=== PATIENT | female | born 1990 | race African-American/Black ===

== ENCOUNTER 2017-09-30 21:38 | Emergency (ER) | payer OTHER ==
[~2017-09-30 21:38] MED LIST: AFRIN30 ML NASB; ALA-CORT30 GM TOP; AMOXICILLIN875 M1 PO; BENTYL20 M1 PO; GOLYTELY 40004000 ML PO; IBUPROFEN600 M1 PO; IBUPROFEN800 M1 PO; MEDROL4 M2 PO; PEPCID20 MG PO; PREDNISOLO15 MG/5 M4 PO; PROAIR HFA8.5 GM INH; TAMIFLU75 M1 PO; TRAMADOL HCL50 M1 PO; TRAMADOL50 MG PO; ZOFRAN ODT4 M1 SL; ZOFRAN4 M2 PO
[2017-09-30 21:46] VITALS: BP 131/70
--- NOTE | 2017-09-30 23:28 | ED GI/GU/ABDOMINAL COMPLAINT ---
History of Present Illness General Chief Complaint: General Adult Stated Complaint: PT THINKS SHE HAS A UTI Source: patient Exam Limitations: no limitations Vital Signs & Intake/Output Vital Signs & Intake/Output Vital Signs Date Time Temp Pulse Resp B/P B/P Pulse O2 O2 Flow FiO2 Mean Ox Delivery Rate 09/30 2146 97.8 70 20 131/70 98 ED Intake and Output 10/01 0000 09/30 1200 Intake Total 0 Output Total Balance 0 Intake, Oral 0 Allergies Coded Allergies: morphine (Mild, HIVES 04/27/17) shrimp (ANAPHYLAXIS 05/14/17) Reconcile Medications Hydrocortisone (Ala-Tam) 2.5 % CREAM..G. 1 SOCRATES TOP TID PRN ITCHING 5 DAYS MAX Ibuprofen 800 MG TABLET 1 TAB PO TID PAIN/FEVER Oseltamivir Phosphate (Tamiflu) 75 MG CAPSULE 1 CAP PO BID FLU Prednisolone 15 MG/5 ML SOLUTION 10 ML PO QDAY allergic reaction Triage Note: PER PT PAIN IN VAGINA STARTED AFTER BEING TREATED WITH TAMIFLU 2 WEEKS AGO + DISCHARGE WHITE IN COLOR \LMP 1 WEEK AGO Triage Nurses Notes Reviewed? yes ? n Is pt currently ? No Onset: Abrupt Duration: day(s): Timing: recent history Location: vaginal Radiation: no radiation Activities at Onset: none No Modifying Factors: none HPI: 27-year-old female comes into the emergency room for further evaluation of vaginal discharge and itching is been going on for the past week. She reports some burning when she peas. She denies any back pain fever vomiting. She is sexually active with women. One partner in the last 6 months. Denies any history of sexually transmitted disease. She reports that her partner was recently treated for a bacterial infection but she does not know which type of infection. (Nicola Haas) Past History Travel History Traveled to [place] past 21 day No Medical History Any Pertinent Medical History? 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 No (Nicola Haas) Review of Systems Review of Systems Constitutional: Reports: no symptoms. EENTM: Reports: no symptoms. Respiratory: Reports: no symptoms. Cardiovascular: Reports: no symptoms. GI: Reports: no symptoms. Genitourinary: Reports: see HPI. Musculoskeletal: Reports: no symptoms. Skin: Reports: no symptoms. Neurological/Psychological: Reports: no symptoms. Hematologic/Endocrine: Reports: no symptoms. Immunologic/Allergic: Reports: no symptoms. All Other Systems: Reviewed and Negative (Nicola Haas) Physical Exam Physical Exam General Appearance: well developed/nourished, alert, awake Head: atraumatic Eyes: Bilateral: normal appearance. Ears, Nose, Throat, Mouth: hearing grossly normal, moist mucous membrane Neck: normal inspection Respiratory: no respiratory distress Gastrointestinal: soft, non-tender Pelvic: cervicitis, discharge (white) Back: normal inspection Extremities: normal range of motion Neurologic/Psych: awake, alert, oriented x 3 Skin: intact, normal color Core Measures ACS in differential dx? No Sepsis Present: No Sepsis Focused Exam Completed? No (Nicola Haas) Progress Differential Diagnosis: kidney stone, ovarian cyst, ovarian torsion, PID/ cervicitis, UTI/pyelo, g/c, bv, trichomonas Plan of Care: Orders Procedure Date/time Status TRICHOMONAS 10/01 0004 Complete POTASSIUM HYDROXIDE (JOSÉ) 10/01 0004 Complete GENITAL CULTURE 10/01 0004 Active CHLAMYDIA-GC DNA PROBE 10/01 0004 Active URINE 09/30 2211 Complete URINALYSIS 09/30 2211 Complete Laboratory Tests 09/30/17 2320: Urine Color YEL, Urine Clarity HAZY H, Urine pH 6.5, Ur Specific Marcus 1.025, Urine Protein NEG, Urine Ketones NEG, Urine Nitrite NEG, Urine Bilirubin NEG, Urine Urobilinogen 4.0 H, Ur Leukocyte Esterase NEG, Ur Microscopic SEDIMENT EXAMINED, Urine RBC 3-5, Urine WBC 3-5 H, Ur Epithelial Cells MANY H, Urine Bacteria MOD H, Urine Mucus FEW, Urine Hemoglobin SMALL H, Urine Glucose NEG, Urine Test NEGATIVE Microbiology 10/01 5 GENITAL: GC DNA Probe - RECD 10/01 5 GENITAL: Chlamydia DNA Probe (BARB) - RECD 10/01 5 GENITAL: JOSÉ Preparation - COMP 10/01 5 GENITAL: Trichomonas Preparation - COMP 10/01 5 GENITAL: Genital Culture - RECD Initial ED EKG: none Comments: Patient was prophylactically treated. Follow-up with APPLICATIONS TESTER doctor. Clinically no signs of PID. No cervical motion tenderness. Afebrile. Nontoxic-appearing. Return if any other concerns. She understands and agrees with plan of care. (Nicola Haas) Departure Departure Disposition: HOME OR SELF CARE Condition: Stable Clinical Impression Primary Impression: Cervicitis Referrals: Antonia Gray APRN (PCP/Family) Additional Instructions: Do not engage in any sexual activity until results are back. Return to the emergency room if any other concerns worsening symptoms. Follow-up with your OB /ALUMINA PLANT SUPERVISOR doctor. Please go over all results of today's visit with your primary care doctor. Contact your primary care doctor to let them know you were here in the emergency room. There may be nonspecific findings which may not be related to your visit today here in the emergency room but may require further evaluation and chronic monitoring by your primary care doctor. If you had a laceration today the chance of foreign body always remains. You should follow-up with your primary care doctor for recheck in 3-5 days for a wound check. If you had an x-ray done there is a chance that a fracture could have been missed on initial read and you should follow-up with your primary care doctor for repeat x-rays if symptoms persist. If your blood pressure was elevated here in the emergency room please have rechecked by [facility] primary care doctor within the next 48. If you were prescribed a narcotic here in the emergency room or any type of controlled substances you're not allowed to drive while taking this medication or operate any type of heavy machinery. Narcotics can make you feel lightheaded dizziness nausea and can cause constipation. You may need to pick up driver a stool softener. Thank you for choosing [facility] emergency room. Please return to the emergency room immediately if you have any other concerns worsening of symptoms. Departure Forms: Customer Survey General Discharge Information (Nicola Haas) PA/SURVEILLANCE SENSOR OPERATOR Co-Sign Statement Statement: ED Attending supervision documentation- I saw and evaluated the patient. I have also reviewed all the pertinent lab results and diagnostic results. I agree with the findings and the plan of care as documented in the PA's/SURVEILLANCE SENSOR OPERATOR's documentation. x I have reviewed the ED Record and agree with the PA's/SURVEILLANCE SENSOR OPERATOR's documentation. [] Additions or exceptions (if any) to the PAs/SURVEILLANCE SENSOR OPERATOR's note and plan are summarized below: [] (Alissa DE LA PAZ,Alfonzo)
== END 2017-10-01 00:28 ==
LOC: ERH 21:38
DX: N72 Inflammatory disease of cervix uteri (principal)
CPT/HCPCS: 87070; 81001; 81025; 87491; 87591; 96372; J0456; J0696

== ENCOUNTER 2018-03-20 23:11 | Emergency (ER) | payer OTHER ==
[~2018-03-20] VITALS: Ht 162.6 cm; Wt 68.0 kg
[~2018-03-20 23:11] MED LIST changes: +CIPRO500 M1 PO; +MOBIC15 M1 PO
--- NOTE | 2018-03-21 00:47 | ED GI/GU/ABDOMINAL COMPLAINT ---
History of Present Illness General Chief Complaint: Abdominal Pain/Flank Pain Stated Complaint: "PELVIC AND STOMACH PAIN,NAUSEA" Source: patient Exam Limitations: no limitations Vital Signs & Intake/Output Vital Signs & Intake/Output Vital Signs Date Time Temp Pulse Resp B/P B/P Pulse O2 O2 Flow FiO2 Mean Ox Delivery Rate 03/21 0130 80 18 99 Room Air 03/20 2355 97.8 81 20 110/70 98 Room Air ED Intake and Output 03/21 0000 03/20 1200 Intake Total Output Total Balance Patient 150 lb Weight Weight Reported by Patient Measurement Method Allergies Coded Allergies: morphine (Mild, HIVES 04/27/17) shrimp (ANAPHYLAXIS 05/14/17) Reconcile Medications Ciprofloxacin HCl (Cipro) 500 MG TABLET 1 TAB PO BID uti Doxycycline Hyclate 100 MG TABLET 1 TAB PO BID infection Hydrocortisone (Ala-Tam) 2.5 % CREAM..G. 1 SOCRATES TOP TID PRN ITCHING 5 DAYS MAX Ibuprofen 800 MG TABLET 1 TAB PO TID PAIN/FEVER Ibuprofen 600 MG TABLET 1 TAB PO TID PRN pain with food Meloxicam (Mobic) 15 MG TABLET 1 TAB PO DAILY PRN pain Oseltamivir Phosphate (Tamiflu) 75 MG CAPSULE 1 CAP PO BID FLU Prednisolone 15 MG/5 ML SOLUTION 10 ML PO QDAY allergic reaction Tramadol HCl 50 MG TABLET 1 TAB PO BIDP PRN pain ten...[id number] Triage Note: PT HERE WITH C/O PELVIC AND LOWER ABD PAIN X1 WEEK. PT ALSO REPORTS HAVING DIARRHEA. PT REPORTS INCREASE IN URINATION. Triage Nurses Notes Reviewed? yes ? N Is pt currently ? No Onset: Gradual Duration: week(s):, waxing and waning Timing: recent history Quality/Severity: cramping Location: epigastric, suprapubic Modifying Factors: Worsens With: urinating. Associated Symptoms: dysuria HPI: 27 yo woman presents with 1 week of mid epigastric and suprapubic abdominal discomfort associated with increased urination and dysuria. She notes that previously she was treated for a UTI, "but it didn't work." She notes white discharge, "maybe a little more than I usually have." She notes no fever, chills, diarrhea, right lower quadrant pain. She denies heterosexual intercourse, citing that she has a girlfriend. Past History Travel History Traveled to [place] past 21 day No Medical History Any Pertinent Medical History? 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 No Review of Systems Review of Systems Constitutional: Denies: see HPI. Physical Exam Physical Exam Gastrointestinal: see below Comments: Review of Systems - except as otherwise noted in HPI Review of Systems Constitutional:no symptoms. EENTM:no symptoms. Respiratory:no symptoms. Cardiovascular:no symptoms. GI:no symptoms. Genitourinary:no symptoms. Musculoskeletal:no symptoms. Skin:no symptoms. Neurological/Psychological:no symptoms. Hematologic/Endocrine:no symptoms. Immunologic/Allergic:no symptoms. All Other Systems: Reviewed and Negative Physical Exam Physical Exam General Appearance: well developed/nourished, no apparent distress Head: atraumatic, normal appearance Eyes: Bilateral: normal appearance. Ears, Nose, Throat: normal pharynx, normal ENT inspection Neck: normal inspection, supple, full range of motion Respiratory: normal breath sounds, chest non-tender, no respiratory distress, quiet respiration, lungs clear Cardiovascular: regular rate/rhythm Gastrointestinal: normal bowel sounds, soft, MILD mid epigastric tenderness to palpation. mild suprapubic tenderness to palpation. no rlq or ruq tenderness. no rebound. no guarding. no organomegaly Back: normal inspection, normal range of motion Extremities: normal inspection, normal capillary refill, normal range of motion, no edema Neurologic/Psych: no motor/sensory deficits, awake, alert, oriented x 3 Skin: intact, normal color, warm/dry pelvic: milky white discharge, moderate, mild right and left adnexal tenderness Core Measures ACS in differential dx? No Sepsis Present: No Sepsis Focused Exam Completed? No Progress Differential Diagnosis: gerd, uti, pid vs other. Plan of Care: Orders Procedure Date/time Status CHLAMYDIA-GC DNA PROBE 03/21 2316 Active TRICHOMONAS 03/21 033 Active POTASSIUM HYDROXIDE (JOSÉ) 03/21 033 Active GENITAL CULTURE 03/21 033 Active CHLAMYDIA-GC DNA PROBE 03/21 033 Active Restraint- Behavioral (Order) 03/21 308 Complete Add-on Test (ER Only) 03/21 48 Active URINALYSIS 03/20 2316 Complete LIPASE 03/20 2316 Complete HEPATIC FUNCTION PANEL 03/20 2316 Complete HUMAN BETA HCG SCREEN 03/20 2316 Complete CBC WITHOUT DIFFERENTIAL 03/20 2316 Complete BASIC METABOLIC PANEL 03/20 2316 Complete AMYLASE 03/20 2316 Complete Current Medications Sig/Lul Start time Last Medication Dose Stop Time Status Admin Ceftriaxone Sodium 250 MG ONCE ONE 03/21 415 UNir (Rocephin) 03/21 416 Doxycycline Hyclate 100 MG ONCE ONE 03/21 415 UNVr (Vibramycin) 03/21 416 Laboratory Tests 03/21/18 0040: Anion Gap 12, Estimated GFR > 60, BUN/Creatinine Ratio 18.8, Glucose 84, Calcium 9.4, Total Bilirubin 1.0, Direct Bilirubin 0.2, AST 28, ALT 33, Alkaline Phosphatase 57, Total Protein 6.8, Albumin 4.1, Amylase 36, Lipase 87, Total Beta HCG NEGATIVE, CBC w Diff NO MAN DIFF REQ, RBC 4.05 L, MCV 99.5 H, MCH 33.5 H, MCHC 33.6, RDW 13.1, MPV 7.3 L, Gran % 55.2, Lymphocytes % 34.2, Monocytes % 8.7, Eosinophils % 1.6, Basophils % 0.3, Absolute Granulocytes 3.4, Absolute Lymphocytes 2.1, Absolute Monocytes 0.5, Absolute Eosinophils 0.1, Absolute Basophils 0 03/21/18 0039: Urinalysis MOD H, Urine Color YEL, Urine Clarity CLEAR, Urine pH 6.0, Ur Specific Arnold 1.025, Urine Protein NEG, Urine Ketones NEG, Urine Nitrite NEG, Urine Bilirubin NEG, Urine Urobilinogen 1.0, Ur Leukocyte Esterase NEG, Ur Microscopic SEDIMENT EXAMINED, Urine RBC 3-5, Urine WBC 1-3 H, Ur Epithelial Cells MOD H, Urine Bacteria MOD H, Urine Hemoglobin SMALL H, Urine Glucose NEG Microbiology 03/21 334 GENITAL: GC DNA Probe - ORD 03/21 334 GENITAL: Chlamydia DNA Probe (BARB) - ORD 03/21 334 GENITAL: JOSÉ Preparation - ORD 03/21 334 GENITAL: Trichomonas Preparation - ORD 03/21 334 GENITAL: Genital Culture - ORD Initial ED EKG: none Departure Departure Disposition: HOME OR SELF CARE Condition: Stable Clinical Impression Primary Impression: Abdominal pain Secondary Impressions: PID (acute pelvic inflammatory disease) Referrals: Antonia Gray APRN (PCP/Family) Departure Forms: Customer Survey General Discharge Information Prescriptions: Current Visit Scripts Doxycycline Hyclate 1 TAB PO BID #20 TAB Ibuprofen 1 TAB PO TID PRN pain #30 TAB with food Tramadol HCl 1 TAB PO BIDP PRN pain #10 TAB ten...[id number] Comments discussed at length... no rlq or ruq tenderness.... will treat for PID... encouraged close follow up with her assembly line leader.
[2018-03-21 01:15] LABS: ABSOLUTE BASOPHIL COUNT 0 /CUMM (0.0-0.2); ABSOLUTE EOSINOPHIL COUNT 0.1 /CUMM (0.0-0.7); ABSOLUTE GRANULOCYTE CT 3.4 /CUMM (1.4-6.5); ABSOLUTE LYMPH COUNT 2.1 /CUMM (1.2-3.4); ABSOLUTE MONOCYTE COUNT 0.5 /CUMM (0.10-0.60); BASOPHIL % 0.3 % (0.0-2.0); EOSINOPHIL % 1.6 % (0-5); GRANULOCYTE % 55.2 % (42.2-75.2); HEMATOCRIT 40.3 % (37-47); MEAN CORPUSCULAR HGB 33.5 PG (27.0-31.0); MEAN CORPUSCULAR HGB CONC 33.6 G/DL (33.0-37.0); MEAN CORPUSCULAR VOLUME 99.5 FL (81.0-99.0); MEAN PLATELET VOLUME 7.3 FL (7.4-10.4); PLATELET COUNT 287 /CUMM (130-400); RBC DISTRIBUTION WIDTH 13.1 % (11.5-14.5); RED BLOOD CELL CT 4.05 /CUMM (4.20-5.40); WHITE BLOOD CELL COUNT 6.1 /CUMM (4.8-10.8)
[2018-03-21] MEDS ORDERED: IBUPROFEN600 M1 PO (04:12)
[2018-03-21] MEDS ORDERED: DOXYCYCLINE HY100 M4 PO (04:12)
[2018-03-21] MEDS ORDERED: TRAMADOL HCL50 M1 PO (04:12)
[2018-03-21 04:41] VITALS: BP 109/63
== END 2018-03-21 04:46 ==
LOC: ERH 23:11
PROVIDERS: Pediatrics
DX: N73.9 Female pelvic inflammatory disease, unspecified (principal)
CPT/HCPCS: 87070; 81001; 87491; 87591; J0696